=== PATIENT | female | born 1965 | race Caucasian/White ===

== ENCOUNTER 2018-05-15 21:36 | Emergency (ER) | payer OTHER ==
[~2018-05-15] VITALS: Ht 160 cm; Wt 136.1 kg
[~2018-05-15 21:36] MED LIST: BACTRIM DS 8001 TA1 PO; CYCLOBENZAPRINE10 MG PO; HYDROCODONE BIT1 T11 PO; LOSARTAN POTASS50 M1 PO; NAPROSYN500 MG PO; NORCO 5-325 TA1 EACH PO; PYRIDIUM200 M1 PO; Synthroid,Lev200 MCG PO; ULTRAM50 MG PO
[2018-05-15 22:25] LABS: BASO # 0.1 10*3/uL (0.0-0.1); BASO % 0.7 % (0.0-1.0); EOS # 0.5 10*3/uL (0.0-0.4); EOS % 5.1 % (1.0-4.0); HEMOGLOBIN 13.7 g/dl (12.0-16.0); LYMPH # 2.5 10*3/uL (1.3-4.4); LYMPH % 25.7 % (27.0-41.0); MEAN CELL VOLUME 87.5 fl (81.0-99.0); MEAN CORPUSCULAR HGB 28.5 pg (27.0-31.0); MEAN CORPUSCULAR HGB CONC 32.6 g/dl (33.0-37.0); MEAN PLATELET VOLUME 10.3 fl (9.6-12.3); MONO % 9.7 % (3.0-9.0); NEUT # 5.8 10*3/uL (2.3-7.9); NEUT % 58.5 % (47.0-73.0); PLATELET COUNT AUTOMATED 236 10*3/uL (130-400); RED CELL DISTRI WIDTH 12.6 % (0-14.5); WHITE BLOOD COUNT 9.9 10*3/uL (4.8-10.8)
[2018-05-15 22:33] LABS: BILIRUBIN NEGATIVE (NEGATIVE); BLOOD TRACE-INTACT (NEGATIVE); CLARITY SL CLOUDY (CLEAR); COLOR YELLOW (YELLOW); GLUCOSE NEGATIVE (NEGATIVE); KETONE TRACE (NEGATIVE); LEUKO ESTERASE TRACE (NEGATIVE); NITRITE NEGATIVE (NEGATIVE); SPECIFIC GRAVITY 1.025 (1.005-1.030)
[2018-05-15 22:42] LABS: ALBUMIN 3.4 gm/dl (3.1-4.5); ALKALINE PHOSPHATASE 91 U/L (45-117); BUN 13 mg/dl (7-24); CHLORIDE 104 mmol/L (98-107); CREATININE 0.93 mg/dL (0.55-1.02); LIPASE 232 U/L (73-393); POTASSIUM 3.7 mmol/L (3.5-5.1); SGOT/AST 22 IU/L (3-35); SGPT/ALT 37 U/L (12-78); SODIUM 140 mmol/L (136-145); TOTAL PROTEIN 7.1 gm/dL (6.4-8.2)
[2018-05-15 22:44] LABS: EPITHELIAL CELLS 45-50
[2018-05-15 22:45] LABS: BACTERIA 2+
[2018-05-16] MEDS ORDERED: SEPTDS PO (00:53)
[2018-05-16] MEDS ORDERED: PYRIDIUM100 MG PO (00:53)
== END 2018-05-16 01:00 | disposition home or self-care (01) ==
LOC: ED 21:36
PROVIDERS: Nurse Practitioner Family
DX: N39.0 Urinary tract infection, site not specified (principal); N20.0 Calculus of kidney; Z79.899 Other long term (current) drug therapy

== ENCOUNTER 2018-11-19 10:25 | Emergency (ER) | payer OTHER ==
[~2018-11-19 10:25] MED LIST changes: +NORVASC5 MG PO; +PYRIDIUM100 MG PO; +SEPTDS PO
[2018-11-19] MEDS ORDERED: Motrin,Rufen800 MG PO ×2 (11:31→12:50)
[2018-11-19] MEDS ORDERED: CYCLOBENZAPRINE10 MG PO ×2 (11:31→12:50)
[2018-11-19] MEDS ORDERED: TYLENOL325 M1 PO ×2 (11:31→12:50)
[2018-11-19] MEDS ORDERED: ARTHRITIS PAI42.5 GM T (12:49)
[2018-11-19] MEDS ORDERED: VOLTAREN100 GM T (12:49)
== END 2018-11-19 12:45 | disposition home or self-care (01) ==
LOC: ED 10:25
DX: G89.29 Other chronic pain (principal); M54.5 Low back pain; I10 Essential (primary) hypertension; E78.5 Hyperlipidemia, unspecified; G43.909 Migraine, unspecified, not intractable, without status migrainosus; E03.9 Hypothyroidism, unspecified; E66.01 Morbid (severe) obesity due to excess calories; Z88.6 Allergy status to analgesic agent; Z79.899 Other long term (current) drug therapy; W00.0XXA Fall on same level due to ice and snow, initial encounter; Y93.89 Activity, other specified; Y92.89 Other specified places as the place of occurrence of the external cause; Y99.8 Other external cause status